=== PATIENT | female | born 1990 | race Caucasian/White ===

== ENCOUNTER 2016-05-06 20:34 | Emergency (ER) | payer BC ==
[2016-05-06 20:34] VITALS: BMI 25.2
[2016-05-06 21:10] VITALS: TEMP 98.3
[2016-05-06 21:24] LABS: AUTOMATED BASOPHIL 0.7 % (0-2); AUTOMATED EOSINOPHIL 3.3 % (0-5); AUTOMATED LYMPH 19.2 % (17-44); AUTOMATED MONOCYTE 7.6 % (3-10); AUTOMATED NEUTROPHIL 69.2 % (45-76); MPV 11.1 fL (7.4-10.4)
[2016-05-06 21:27] LABS: LEUKOCYTES/URINE NEG (NEGATIVE); NITRITE/URINE NEG (NEGATIVE); URINE OCCULT BLOOD NEG (NEG/TRACE); WBC/URINE 0-2 (0-5)
[2016-05-06 21:35] LABS: BLOOD UREA NITROGEN 8 MG/DL (7-17); CALCULATED OSMOLALITY 266 MOs/Kg (270-290); CHLORIDE 107 mEq/L (98-107); GLUCOSE 93 MG/DL (70-99); SODIUM LEVEL 139 mEq/L (137-146); TOTAL PROTEIN 6.8 G/DL (6.3-8.2)
[2016-05-06] MEDS ORDERED: SODIUM CHLORIDE 0.9% 3 ML FLUSH FLUSH PRN (23:32)
[2016-05-06] MEDS ORDERED: MORPHINE 4 MG/ML INJECTION IV ONE (23:32)
[2016-05-06] MEDS ORDERED: ONDANSETRON HCL 4 MG/2 ML VIAL IV ONE (23:32)
--- NOTE | 2016-05-06 23:35 | EDPRACDOC ---
- General Information Chief Complaint: Abdominal Pain Stated Complaint: RT LOWER ABD PAIN Time Seen by Provider: 05/06/16 23:19 Information Source: Patient Mode Of Arrival: Car Home Medications: Home Medications Ondansetron HCl [Zofran] 4 mg PO Q8H PRN #15 tab 10/24/15 Oxycodone HCl/Acetaminophen [Percocet 5-325 mg Tablet] 1 tab PO Q6H PRN #20 tab 10/24/15 Metronidazole [Flagyl] 500 mg PO TID #30 tab 05/07/16 Ondansetron [Zofran Odt] 4 mg PO Q6H #14 tab.rapdis 05/07/16 Oxycodone Immediate Release [Oxycodone Immediate Release (OxyIR)] 5 mg PO Q6H PRN #14 tab 05/07/16 Allergies/Adverse Reactions: Allergies Allergy/AdvReac Type Severity Reaction Status Date / Time clarithromycin [From Biaxin] AdvReac Unknown Anaphylaxis Verified 05/06/16 21:10 * hydromorphone HCl AdvReac Unknown Anaphylaxis Verified 05/06/16 21:10 [From Dilaudid] * Sulfa (Sulfonamide AdvReac Unknown Hives* Verified 05/06/16 21:10 Antibiotics) [Sulfa(Sulfonamide Antibiotics)] - History of Present Illness Onset: TUESDAY HPI: PT STATES STARTED HAVING RIGHT SIDED ABD PAIN ON TUESDAY THAT WAS INTERMITTENT ACHY TODAY STATES THE PAIN HAS CHANGED AND IS HURTING WORSE STATES IS STILL ACHY BUT IS NOW HAVING SHARP SHOOTING PAINS WITH N/V. DENIES VAGINAL DISCHARGE AND BLEEDING. Pain Location: Reports: RLQ, Flank (RT) Pain Context: Reports: Spontaneous Pain Severity: Moderate Pain Quality: Reports: Aching, Sharp, Stabbing Pain Radiation: Reports: Flank (RT), Back (RT) Last Menstrual Period: 3 WEEKS AGO : No Abortus: 0 Control Method: Reports: BCPs Blood Type: O+ Modifying Factors: improves with: Position, Movement Female Associated Signs & Symptoms: Reports: Nausea, Vomiting Oral Intake: Normal Urinary Output: Normal ED Past Medical History - History Reviewed Yes Nurses notes reviewed and agree except as marked Travel Outside of [place] in the Last 3 Months?: No No Past Medical History: Yes Patient has no past medical history - Patient Medical History Psychological History: Denies: Depression, Anxiety, Schizophrenia, Bipolar Disorder Systemic History: Denies: Cancer, Anemia, Lupus Surgical History: Reports: Tonsillectomy/Adnoidectomy. Denies: Hysterectomy - Family Medical History Denies: Hypertension, Diabetes, Cancer, Stroke, Cardiac Disorders - Social Medical History Smoking Status: Heavy tobacco smoker (5 or more cigarettes/day or daily pipe/ cigar) ETOH: None Substance Abuse: None Lives With: Other Lives In: Home EDM Review of Systems - Review of Systems ROS Negative Except as Marked: Yes All systems reviewed and were negative except as marked Constitutional: No Symptoms Reported. negative: Fever, Chills, Weakness, Fatigue, Loss of Appetite Eyes: No Symptoms Reported. negative: Redness, Blurred Vision, Double Vision, Discharge, Pain, Light Sensitive, Photophobia Ears: No Symptoms Reported. negative: Pain, Hearing Loss, Drainage, Ear Pulling Throat: No Symptoms Reported. negative: Pain, Swelling Nose: No Symptoms Reported. negative: Congestion, Bleeding, Discharge, Injection, Swelling, Deformity, Ecchymosis, Tender, Abrasion, Laceration Mouth: No Symptoms Reported. negative: Pain, Drooling Respiratory: No Symptoms Reported. negative: Cough, Brassy Cough, Barky Cough, Shortness of Breath, Wheezing, Hemoptysis Cardiovascular: No Symptoms Reported. negative: Chest Pain, Palpitations, Syncope, Edema, Orthopnea, PND, Skin Mottling, Cyanosis Gastrointestinal: Nausea, Pain, Vomiting. negative: Constipation, Diarrhea, Formula Intolerance, Melena Genitourinary: Flank Pain (RT). negative: Bleeding, Dysuria, Discharge, Frequency, Hematuria, , Testicular Pain Neurological: No Symptoms Reported. negative: Headache, Dizziness, Seizure, Numbness, Weakness, Speech Difficulty, Gait Difficulty Musculoskeletal: No Symptoms Reported. negative: Neck, Chestwall, Ribs, Back, Shoulder, Arm, Elbow, Forearm, Wrist, Hand, Pelvis, Hip, Femur, Knee, Leg, Ankle , Foot Integumentary: No Symptoms Reported. negative: Itching, Rash, Bruising, Wound Allergic/Immunologic: No Symptoms Reported. negative: Hives, Itching Hematologic: No Symptoms Reported. negative: Lymphadenopathy, Easy Bruising, Easy Bleeding Endocrine: No Symptoms Reported. negative: Weight Gain, Weight Loss Psychiatric: No Symptoms Reported. negative: Anxiety, Depression, Hallucinations, Insomnia, Suicidal - Physical Exam Constitutional: No apparent distress, Alert (Awake) Oriented to: Time, Person, Place Last recorded Vital Signs: Last Vital Signs Temp 98.3 F 05/06/16 21:07 Pulse 85 05/07/16 00:00 Resp 20 05/07/16 00:00 BP 132/66 05/07/16 00:00 Pulse Ox 100 05/07/16 00:00 Oxygen Pulse Oxygen Saturation 100 O2 Device Room Air Oxygen Flow Rate Fraction of Inspired Oxygen ( FIO2) - HEENT Head: Normal ( normocephalic) Eye Exam: Normal (PERRL, EOMI, Sclera white) Oropharynx: Normal (Pharynx:Moist without exudate,Gums-no swelling) Tympanic Membrane: Normal ENT EAC: Normal TMJ: Normal Nose: No Symptoms Reported (septum midline) Neck: Normal (FROM, trachea at midline) - Respiratory/Cardiovascular Respiratory: Normal - CTA (BBS clear to auscultation without adventitious sounds ) Cardiovascular: Normal (RRR without murmur, gallop or rub) - GI Auscultation: Normal (NABS) Palpation: Normal (Soft,No rebound or guarding, non distended) Tenderness: Mild, RLQ Sosa's Sign: Negative - Bladder: Normal External: Normal Vagina: Discharge Cervix: Discharge, Tenderness (MILD AND FRIABLE) Uterus: Normal size Adnexa: Bilateral: Normal - Musculoskeletal Back: Normal (Non-Tender) Extremities: Normal (Normal tone, Pulses 2+ No cyanosis or edema, FROM) - Integumentary Skin: Normal, Warm, Dry Lymphatics: Normal (no adenopathy) - Neurologic Memory Impaired: Normal Motor Function: Normal (Normal tone, Pulses 2+ No cyanosis or edema, FROM) Cranial Nerve: Normal (CN II-X11 intact sensation, strength 5/5) Cerebellar: Normal Mood Description: Normal Perception: Normal - Differential Diagnosis Appendicitis, Urolithiasis, UTI, Other (VAGINITIS) - Results 05/06/16 21:08 05/06/16 21:08 WBC 5.3 xk/uL (3.8-10.8) 05/06/16 21:08 RBC 4.45 xM/uL (4.20-5.40) 05/06/16 21:08 Hgb 11.6 g/dL (12.0-16.0) L 05/06/16 21:08 Hct 35.5 % (36-47) L 05/06/16 21:08 MCV 80 fL (81-99) L 05/06/16 21:08 MCH 26.0 pg (27-32) L 05/06/16 21:08 MCHC 32.7 g/dl (33-36) L 05/06/16 21:08 RDW 17.7 % (11.5-14.5) H 05/06/16 21:08 Plt Count 124 xk/uL (130-400) L 05/06/16 21:08 MPV 11.1 fL (7.4-10.4) H 05/06/16 21:08 Neut % (Auto) 69.2 % (45-76) 05/06/16 21: Lymph % (Auto) 19.2 % (17-44) 05/06/16 21: [place] % (Auto) 7.6 % (3-10) 05/06/16 21:08 Eos % (Auto) 3.3 % (0-5) 05/06/16 21: Baso % (Auto) 0.7 % (0-2) 05/06/16 21:08 Absolute Neuts (auto) 3.66 xk/uL (1.7-8.2) 05/06/16 21:08 Absolute Lymphs (auto) 1.01 xk/uL (0.65-4.75) 05/06/16 21:08 Sodium 139 mEq/L (137-146) 05/06/16 21:08 Potassium 4.0 mEq/L (3.5-5.1) 05/06/16 21:08 Chloride 107 mEq/L (98-107) 05/06/16 21:08 Carbon Dioxide 22 mMOL/L (22-33) 05/06/16 21:08 Anion Gap 14 mEq/L (8-16) 05/06/16 21:08 BUN 8 MG/DL (7-17) 05/06/16 21:08 Creatinine 0.70 MG/DL (0.52-1.04) 05/06/16 21:08 Estimated GFR (MDRD) > 60 mL/min (>=60) 05/06/16 21:08 Glucose 93 MG/DL (70-99) 05/06/16 21:08 Calculated Osmolality 266 MOs/Kg (270-290) L 05/06/16 21:08 Calcium 9.0 MG/DL (8.4-10.2) 05/06/16 21:08 Total Bilirubin 0.4 MG/DL (0.2-1.3) 05/06/16 21:08 AST 20 IU/L (14-36) 05/06/16 21:08 ALT 27 IU/L (9-52) 05/06/16 21:08 Alkaline Phosphatase 67 IU/L (38-126) 05/06/16 21:08 Total Protein 6.8 G/DL (6.3-8.2) 05/06/16 21:08 Albumin 4.1 G/DL (3.5-5.0) 05/06/16 21: Lipase 34 U/L (23-300) 05/06/16 21:08 Urine Color Yellow 05/06/16 21:03 Urine Clarity Clear 05/06/16 21:03 Urine pH 6.0 (5.0-8.0) 05/06/16 21:03 Ur Specific [place] 1.005 (1.003-1.035) 05/06/16 21:03 Urine Protein Neg (NEG/TRACE) 05/06/16 21:03 Urine Glucose (UA) Neg (NEGATIVE) 05/06/16 21:03 Urine Ketones Neg (NEGATIVE) 05/06/16 21:03 Urine Occult Blood Neg (NEG/TRACE) 05/06/16 21:03 Urine Nitrite Neg (NEGATIVE) 05/06/16 21:03 Urine Bilirubin Neg (NEGATIVE) 05/06/16 21:03 Urine Urobilinogen <2.0 MG/DL (0-1) 05/06/16 21:03 Ur Leukocyte Esterase Neg (NEGATIVE) 05/06/16 21:03 Urine WBC 0-2 (0-5) 05/06/16 21:03 Ur Epithelial Cells 1+ 05/06/16 21:03 Urine Bacteria 1+ (NEG/FEW) H 05/06/16 21:03 Urine Test Neg (NEGATIVE) 05/06/16 21:03 Microbiology 05/07/16 00:40 SAE Preparation - Final Vaginal 05/07/16 00:40 Trichomonas [place] - Final Vaginal Lab Results 05/06/16 05/06/16 05/06/16 21:08 21:08 21:03 WBC 5.3 RBC 4.45 Hgb 11.6 L Hct 35.5 L MCV 80 L MCH 26.0 L MCHC 32.7 L RDW 17.7 H Plt Count 124 L MPV 11.1 H Neut % (Auto) 69.2 Lymph % (Auto) 19.2 [place] % (Auto) 7.6 Eos % (Auto) 3.3 Baso % (Auto) 0.7 Absolute Neuts (auto) 3.66 Absolute Lymphs (auto) 1.01 Sodium 139 Potassium 4.0 Chloride 107 Carbon Dioxide 22 Anion Gap 14 BUN 8 Creatinine 0.70 Estimated GFR (MDRD) > 60 Glucose 93 Calculated Osmolality 266 L Calcium 9.0 Total Bilirubin 0.4 AST 20 ALT 27 Alkaline Phosphatase 67 Total Protein 6.8 Albumin 4.1 Lipase 34 Urine Color Yellow Urine Clarity Clear Urine pH 6.0 Ur Specific [place] 1.005 Urine Protein Neg Urine Glucose (UA) Neg Urine Ketones Neg Urine Occult Blood Neg Urine Nitrite Neg Urine Bilirubin Neg Urine Urobilinogen <2.0 Ur Leukocyte Esterase Neg Urine WBC 0-2 Ur Epithelial Cells 1+ Urine Bacteria 1+ H Urine Test 05/06/16 21:03 WBC RBC Hgb Hct MCV MCH MCHC RDW Plt Count MPV Neut % (Auto) Lymph % (Auto) [place] % (Auto) Eos % (Auto) Baso % (Auto) Absolute Neuts (auto) Absolute Lymphs (auto) Sodium Potassium Chloride Carbon Dioxide Anion Gap BUN Creatinine Estimated GFR (MDRD) Glucose Calculated Osmolality Calcium Total Bilirubin AST ALT Alkaline Phosphatase Total Protein Albumin Lipase Urine Color Urine Clarity Urine pH Ur Specific [place] Urine Protein Urine Glucose (UA) Urine Ketones Urine Occult Blood Urine Nitrite Urine Bilirubin Urine Urobilinogen Ur Leukocyte Esterase Urine WBC Ur Epithelial Cells Urine Bacteria Urine Test Neg - Diagnostic Imaging CT ABD/PEL Image interpreted by: Radiologist 05/07/16 01:56 IMPRESSION: No acute intra-abdominal pelvic pathology. Decision Time to Discharge: 01:56 - Departure Disposition: Home Condition: Stable Final Diagnosis: Bacterial vaginosis Instructions: Acute Abdominal Pain (ED), Bacterial Vaginosis (ED) Education/Counseling Given To: Patient Education/Counseling Given Regarding: Diagnosis, Treatment, Prognosis, Follow Up Referrals: None,No Provider [Primary Care Provider] - One Week Prescriptions: Metronidazole [Flagyl] 500 mg PO TID #30 tab Ondansetron [Zofran Odt] 4 mg PO Q6H #14 tab.rapdis Oxycodone Immediate Release [Oxycodone Immediate Release (OxyIR)] 5 mg PO Q6H PRN #14 tab PRN Reason: Pain Additional Instructions: NO SEXUAL INTERCOURSE UNTIL SYMPTOMS RESOLVED. RETURN FOR WORSE OR DIFFERENT SYMPTOMS.
[2016-05-06] MEDS ORDERED: NS 1,000 ML IV ONE ×2 (23:36)
[2016-05-06] MEDS ORDERED: Pharmacy Review for Metformin - IV Contrast Given SCH (23:45)
[2016-05-07] MEDS ORDERED: DIPHENHYDRAMINE 50 MG/ML VIAL IV ONE (00:25)
[2016-05-07] MEDS ORDERED: OXYCODONE HCL 5 MG TABLET PO ONE (01:16)
[2016-05-07] MEDS ORDERED: METRONIDAZOLE 500 MG TAB PO ONE (01:16)
--- NOTE | 2016-05-07 01:37 | DIRPT ---
CLINICAL DATA: 26-year-old female with right-sided abdominal pain EXAM: CT ABDOMEN AND PELVIS WITH CONTRAST TECHNIQUE: Multidetector CT imaging of the abdomen and pelvis was performed using the standard protocol following bolus administration of intravenous contrast. CONTRAST: 80 cc Isovue 370 COMPARISON: CT dated 10/24/2015 FINDINGS: The visualized lung bases are clear. No intra-abdominal free air. Small free fluid within the pelvis. The liver, gallbladder, pancreas, spleen, adrenal glands, kidneys, visualized ureters, and urinary bladder appear unremarkable. The uterus is anteverted and grossly unremarkable. Multiple small left ovarian follicle noted. The right ovary is not visualized with certainty. Ultrasound may provide better evaluation of the pelvic structures. There is no evidence of bowel obstruction or inflammation. Normal appendix. The abdominal aorta and IVC appear patent. No portal venous gas identified. There is no adenopathy. The abdominal wall soft tissues and osseous structures appear unremarkable. IMPRESSION: No acute intra-abdominal pelvic pathology. Electronically Signed By: Marko Crane M.D. On: 05/07/2016 01:34
[2016-05-07 02:12] VITALS: BP 130/62; PULSE 82
[2016-05-07] MEDS ORDERED: SODIUM CHLORIDE 0.9% 3 ML FLUSH FLUSH SCH (06:00)
== END 2016-05-07 02:05 | disposition home or self-care (01) ==
LOC: ED 20:34
DX: N76.0 Acute vaginitis (principal); B96.89 Other specified bacterial agents as the cause of diseases classified elsewhere; F17.200 Nicotine dependence, unspecified, uncomplicated
CPT/HCPCS: 36415; 74177; 80053; 81001; 81025; 83690; 85025; 87210; 87220; 96361; 96374; 96375; 99284; A9698; J1200; J2270; J2405; J3490